=== PATIENT | male | born 1985 | race African-American/Black ===

== ENCOUNTER 2018-01-08 11:43 | Emergency (ER) | payer SELFPAY ==
--- NOTE | 2018-01-08 13:13 | RAD ---
RIGHT HAND 3 VIEWS: Date: 01/08/18 HISTORY: Pain. COMPARISON: None. FINDINGS: No fracture. No cortical irregularity. No periosteal reaction. IMPRESSION: No injury. POS: JEAN
== END 2018-01-08 13:22 | disposition home or self-care (01) ==
LOC: ERS 11:43
DX: L03.011 Cellulitis of right finger (principal)
CPT/HCPCS: 99406

== ENCOUNTER 2018-01-22 13:04 | Emergency (ER) | payer SELFPAY | END 2018-01-22 16:02 | disposition home or self-care (01) | LOC: ERS 13:04 | DX: Z48.817 Encounter for surgical aftercare following surgery on the skin and subcutaneous tissue (principal) | CPT/HCPCS: 99283 ==

== ENCOUNTER 2018-01-29 16:24 | Emergency (ER) | payer SELFPAY | END 2018-01-29 17:09 | disposition home or self-care (01) | LOC: ERS 16:24 | DX: M79.641 Pain in right hand (principal) | CPT/HCPCS: 99283 ==